=== PATIENT | female | born 1965 | race Two or more races ===

== ENCOUNTER 2019-10-25 06:40 | Day surgery (SDC) | payer MEDICAID ==
[~2019-10-25] VITALS: Ht 165.1 cm; Wt 66.7 kg
[~2019-10-25 06:40] MED LIST: ASPI-404 PO; BRIM0.159 OP; IBUP800T24 PO; LEVO200T7 PO; NORT10CA PO; VALS1TAB57 PO
[2019-10-25] MEDS ORDERED: ceFAZolin 1GM/50ML 50 ML IV ONE (07:55)
[2019-10-25] MEDS ORDERED: GLYCOPYRROLATE 0.2 MG/ML 1ML VIAL IV ONE (08:20)
[2019-10-25] MEDS ORDERED: NEOSTIGMINE 1 MG/ML INJ (10mg/10ML VIAL) IV ONE (08:20)
[2019-10-25] MEDS ORDERED: fentaNYL CITRATE 5 ML ONE (08:25)
[2019-10-25] MEDS ORDERED: MIDAZOLAM HCL 1MG/1ML-2 ML VIAL ONE (08:25)
[2019-10-25] MEDS ORDERED: PROPOFOL 10 MG/ML 20 ML IV ONE (08:26)
[2019-10-25] MEDS ORDERED: ROCURONIUM 10MG/ML 10ML VIAL IV ONE ×2 (08:26)
[2019-10-25] MEDS ORDERED: ROPIVACAINE 0.5% (5MG/ML) 20ML AMPULE IJ ONE (09:53)
[2019-10-25] MEDS ORDERED: KETOROLAC TROMETH 30 MG/ML 1ML VIAL ONE (09:53)
[2019-10-25] MEDS ORDERED: ePHEDrine SULFATE 50 MG/ML AMP IV PRN (10:00)
[2019-10-25] MEDS ORDERED: ONDANSETRON HCL 4 MG/2 ML VIAL IV PRN (10:00)
[2019-10-25] MEDS ORDERED: KETOROLAC TROMETH 15 mg/ml 1ML VL IV ONE (10:00)
[2019-10-25] MEDS ORDERED: HYDROmorphone HCL 2 MG/ML VL IV PRN (10:00)
[2019-10-25] MEDS ORDERED: hydrALAZINE HCL 20 MG/ML VL IV PRN (10:00)
[2019-10-25] MEDS: HYDROmorphone HCL 2 MG/ML VL IV PRN ×3 (10:05→10:24)
[2019-10-25 10:57] VITALS: BP 142/87
== END 2019-10-25 11:12 | disposition home or self-care (01) ==
LOC: SUR 06:40
PROVIDERS: ATTEND Orthopaedic Surgery
DX: M75.102 Unspecified rotator cuff tear or rupture of left shoulder, not specified as traumatic (principal); M75.42 Impingement syndrome of left shoulder; M19.012 Primary osteoarthritis, left shoulder; I10 Essential (primary) hypertension; F41.1 Generalized anxiety disorder; Z79.890 Hormone replacement therapy; Z85.850 Personal history of malignant neoplasm of thyroid; E78.5 Hyperlipidemia, unspecified; F33.2 Major depressive disorder, recurrent severe without psychotic features; F17.210 Nicotine dependence, cigarettes, uncomplicated; E89.0 Postprocedural hypothyroidism; K21.9 Gastro-esophageal reflux disease without esophagitis; R73.03 Prediabetes; Z79.899 Other long term (current) drug therapy; Z83.3 Family history of diabetes mellitus; Z83.1 Family history of other infectious and parasitic diseases; Z98.891 History of uterine scar from previous surgery; Z98.890 Other specified postprocedural states; S43.431A Superior glenoid labrum lesion of right shoulder, initial encounter; X58.XXXA Exposure to other specified factors, initial encounter; Y93.89 Activity, other specified; Y92.89 Other specified places as the place of occurrence of the external cause; Y99.8 Other external cause status; M65.811 Other synovitis and tenosynovitis, right shoulder; M75.21 Bicipital tendinitis, right shoulder
CPT/HCPCS: 29823; 29824; 29826; 29827; 29828; C1713; J0690; J1170; J1885; J2250; J2405; J2704; J2795; J3010; A4565

== ENCOUNTER → 2019-11-16 | Emergency (ER) | payer MEDICAID ==
[~2019-11-16] VITALS: Ht 165.1 cm; Wt 66.2 kg
[~2019-11-16] MED LIST changes: +ALBUTEROL SULF 2.5 MG/0.5ML(0.5%) NEB SOLN NEB ONE; +IPRATROPIUM BROM 0.5 MG/2.5ML INH SOL NEB ONE; +KETOROLAC TROMETH 15 mg/ml 1ML VL IV ONE; +KETOROLAC TROMETH 30 MG/ML 1ML VIAL IV ONE; +SODIUM CHLORIDE 0.9% 1,000 ML IV ONE; +cefTRIAXone 1GM/50ML D5W 50 ML IV ONE; +methylPREDNISolone SOD SUCC 125 MG/2 ML VL IV ONE
[2019-11-16 14:48] LABS: Basophils # (auto) 0 10 ^3/uL (0-0.2); Basophils % (auto) 0.6 % (0.0-2.0); Eosinophils # (auto) 0.2 10 ^3/uL (0-0.8); Eosinophils % (auto) 3.7 % (0.0-7.0); Hematocrit 35.8 % (36.0-46.0); Hemoglobin 12.2 g/dL (12.2-16.2); Lymphocytes # (auto) 1.9 10 ^3/uL (0.4-5.4); Lymphocytes % (auto) 40.5 % (10.0-50.0); Mean Corpuscular Hemoglobin 28.2 pg (28.0-32.0); Mean Corpuscular Hgb Conc. 34.2 g/dL (32.0-36.0); Mean Corpuscular Volume 82.5 fL (80.0-100.0); Monocytes # (auto) 0.6 10 ^3/uL (0-1.3); Monocytes % (auto) 13.7 % (0.0-12.0); Neutrophils # (auto) 1.9 10 ^3/uL (1.6-8.6); Neutrophils % (auto) 41.5 % (37.0-80.0); Platelet Count (auto) 275 10^3/uL (140-450); Red Blood Cells 4.34 10^6/uL (4.0-5.20); Red Cell Distribution Width 13.6 % (11.8-14.3); White Blood Cell 4.7 10^3/uL (4.4-10.8)
[2019-11-16 14:58] LABS: Albumin 3.4 g/dL (3.4-5.0); BUN/Creatinine Ratio 20.6; Calcium 8.9 mg/dL (8.5-10.1); Potassium 3.8 mmol/L (3.5-5.1)
[2019-11-16 15:01] LABS: Bilirubin, Total 0.5 mg/dL (0.2-1.0); Total Protein 7.3 g/dL (6.4-8.2)
[2019-11-16 16:00] VITALS: BP 145/96
== END | disposition home or self-care (01) ==
LOC: EDUNIT# 13:17 → EDBD 13:30 → ER 13:30
DX: J44.9 Chronic obstructive pulmonary disease, unspecified (principal); E07.9 Disorder of thyroid, unspecified; I10 Essential (primary) hypertension
CPT/HCPCS: 36415; 71045; 80053; 85025; 94640; 96365; 96375; 99284; J0696; J1885; J2930; J7644